=== PATIENT | male | born 1985 | race Caucasian/White ===

== ENCOUNTER 2023-12-05 19:20 | Emergency (ER) | payer BC, SELFPAY ==
[2023-12-05 19:23] VITALS: BP 121/83; PULSE 89; RESP 16; TEMP 37; O2SAT 98; BMI 21.7
--- NOTE | 2023-12-05 19:35 | CRLHL7_ITS ---
For Patients: As a result of the Cures Act, medical imaging exams and procedure reports are released immediately into your electronic medical record. You may view this report before your referring provider. If you have questions, please contact your health care provider. INDICATION: VOMITING AND FOOD IMPACTION. TECHNIQUE: Chest 1 views. COMPARISON: None. FINDINGS: Cardiovascular and mediastinum: Cardiomediastinal silhouette is within normal limits. Lungs and pleural spaces: Lungs are clear. No sign of pleural effusion. No pneumothorax. Bones and soft tissues: No significant findings. IMPRESSION: No acute cardiopulmonary process identified. Dictated by Lauren Worley MD @ 12/05/2023 9:07:20 PM (Electronically Signed)
[2023-12-05] MEDS: HYDROmorphone 0.5 mg/0.5 ml inj IVP (19:53)
[2023-12-05] MEDS: ONDANSETRON 2 MG/ML inj 4 MG IVP (19:55)
[2023-12-05] MEDS: LORazepam 2 MG/ML inj 0.5 MG IVP (19:56)
[2023-12-05] MEDS: 0.9 % SODIUM CHLORIDE 1000 ml 1,000 ML IV (20:04)
[2023-12-05 20:06] LABS: Basophils Absolute Auto 0.04 K/uL (0.00-0.30); Basophils Percent Auto 0.6 % (0.0-3.0); Eosinophils Percent Auto 3.2 % (0.0-7.0); Hematocrit 43.4 % (37.0-53.0); Immature Granulocytes Abs Auto 0.01 K/uL (0.00-0.30); Immature Granulocytes Pct Auto 0.2 %; Lymphocytes Percent Auto 18.5 % (20-44); Mean Corpuscular HGB Conc 35 gm/dL (32-36); Mean Corpuscular Hemoglobin 31 pg (26-34); Mean Corpuscular Volume 89 fL (80-100); Monocytes Percent Auto 7.3 % (0.0-11.0); Neutrophils Absolute Auto 4.35 K/uL (1.7-7.0); Neutrophils Percent Auto 70.2 % (42.0-72.0); Platelet Count* 194 K/uL (140-440); RDW Coefficient of Variation % 11.5 % (11.5-15.5); Red Blood Count 4.86 m/uL (4.30-5.90)
[2023-12-05 20:07] LABS: Slide Review Reflex No
[2023-12-05 20:30] LABS: Chloride* 104 mmol/L (96-114); Potassium* 3.8 mmol/L (3.6-5.1); Sodium* 141 mmol/L (135-149)
[2023-12-05] MEDS: PANTOPRAZOLE SODIUM 40 MG INJ IVP (20:30)
--- NOTE | 2023-12-05 20:31 | ED_ITS ---
HPI - General Adult General Date Seen: 12/05/23 Chief complaint: Abdominal Pain Stated complaint: possible blockage in stomach Time Seen by Provider: 12/05/23 19:21 Source: patient and family Mode of arrival: ambulatory Limitations: no limitations History of Present Illness HPI narrative: Patient is a 38-year-old gentleman who presents here with a foreign body meat bolus stuck in his lower esophagus, approximately 2 hours ago he was eating a corn beef sandwich, and felt it get stuck in his lower part of his chest he has had multiple episodes at least 15 times of vomiting since, he can not keep any fluids down. He went initially to the [facility] where they gave him some pop rocks, he threw these up, they recommended he go to the emergency department at [facility], he went there and found that he had approximately a 3 hour wait and then came to the [facility] ER. No previous history of esophageal foreign body, he has no history of chronic gastritis or esophagitis, or reflux. Denies throwing up any blood, denies a history of fevers chills or sweats or history of malignancy. He is on no chronic medications, has no known allergies. Here with his . The chest pain came on right with eating, this was not that it came on after. No previous history of ER visits, hospitalizations or any surgical endeavors. Nondrinker nonsmoker no user of alcohol. Related Data Previous Rx's ?Medication ?Instructions ?Recorded pantoprazole 40 mg tablet,delayed 40 mg PO DAILY #21 tabs 12/05/23 release (Protonix) Allergies Allergy/AdvReac Type Severity Reaction Status Date / Time acetaminophen [From Tylenol] Allergy Verified 12/05/23 19:26 [facility] Medical History (Updated 12/05/23 @ 21:39 by Kevin Childress MD) Patellofemoral pain syndrome of left knee ?M22.2X2 - Patellofemoral disorders, left knee (ICD-10) Chronic pain of left knee ?M25.562 - Pain in left knee (ICD-10) ?G89.29 - Other chronic pain (ICD-10) Asthma ?J45.909 - Unspecified asthma, uncomplicated (ICD-10) Allergic rhinitis ?J30.9 - Allergic rhinitis, unspecified (ICD-10) Surgical History (Updated 12/05/23 @ 20:39 by Sergei Erickson RN) History of surgical procedure ?Z98.890 - Other specified postprocedural states (ICD-10) Social History Smoking Status: Never smoker Do you use any of these nicotine containing products: None How often do you have a drink containing alcohol: never How often do you have six or more drinks on one occasion: Never AUDIT-C Alcohol total score: 0 Non-prescribed substance use: denies use Exam Narrative: Exam Narrative: On examination he is in moderate distress, he did retch a couple times. Pupils equal round reactive to light there is no scleral icterus redness, is TMs are normal his oropharynx is normal his chest is good air entry bilaterally, with no wheezing crackles heart sounds are normal his abdomen is soft, there is no guarding organomegaly, and bowel sounds are normal he moves all extremities independently and well. Const: Vital Signs, click to edit/add: Vital Signs - 24 hr 12/05/23 19:23 12/05/23 21:50 Temperature 98.6 F 98.6 F Pulse Rate [Pulse Oximeter] 89 84 Respiratory Rate 16 16 Blood Pressure [Ri ght Upper Arm] 121/83 118/78 Pulse Oximetry 98 98 Oxygen Delivery Me thod Room Air Room Air Documenting provider has reviewed patient's vital signs: yes Course Course ED Course: Patient continues to do well, he is able to drink water any crackers, with no problems at all. A feels a little tired from the medications examination reveals no tenderness in his abdomen, he has injury breathing normally. I think at this point with normal labs, normal chest x-ray shows no evidence of air along his mediastinum. Were able to discharge home, I will put him on Protonix for 3 weeks, he has further issues he needs to follow up with GI return here to the emergency room, he should be on clear fluids for the next 3 days, increasing to soft diet after that. He was comfortable with this plan. Vital Signs Vital signs: Initial Vital Signs Temperature 98.6 F 12/05/23 19:23 Temperature Source Temporal Artery Scan 12/05/23 19:23 Pulse Rate 89 12/05/23 19:23 Respiratory Rate 16 12/05/23 19:23 Blood Pressure 121/83 12/05/23 19:23 Blood Pressure Mean 95 12/05/23 19:23 Blood Pressure Position Sitting 12/05/23 19:23 Pulse Oximetry 98 12/05/23 19:23 Oxygen Delivery Method Room Air 12/05/23 19:23 Vital Signs Temperature 98.6 F 12/05/23 19:23 Pulse Rate 89 12/05/23 19:23 Respiratory Rate 16 12/05/23 19:23 Blood Pressure 121/83 12/05/23 19:23 Pulse Oximetry 98 12/05/23 19:23 Oxygen Delivery Method Room Air 12/05/23 19:23 Temperature 98.6 F 12/05/23 21:50 Pulse Rate 84 12/05/23 21:50 Respiratory Rate 16 12/05/23 21:50 Blood Pressure 118/78 12/05/23 21:50 Pulse Oximetry 98 12/05/23 21:50 Oxygen Delivery Method Room Air 12/05/23 21:50 Medications Administered Medications: Discontinued Medications Generic Name Dose Route Start Last Admin Trade Name Freq PRN Reason Stop Dose Admin Hydromorphone HCl 0.5 mg 12/05/23 19:35 12/05/23 19:53 Hydromorphone 0.5 Mg/0.5 Ml Inj IVP 12/05/23 19:36 0.5 mg ONCE ONE Administration Sodium Chloride 1,000 mls @ 1,000 mls/hr 12/05/23 19:45 12/05/23 21:15 0.9 % Sodium Chloride 1000 Ml IV 12/05/23 20:44 Infused .Q1H GRANT Infusion Lorazepam 0.5 mg 12/05/23 19:36 12/05/23 19:56 Lorazepam 2 Mg/Ml Inj IVP 12/05/23 19:37 0.5 mg ONCE ONE Administration Ondansetron HCl 4 mg 12/05/23 19:35 12/05/23 19:55 Ondansetron 2 Mg/Ml Inj IVP 12/05/23 19:36 4 mg ONCE ONE Administration Pantoprazole Sodium 40 mg 12/05/23 20:20 12/05/23 20:30 Pantoprazole Sodium 40 Mg Inj IVP 12/05/23 20:21 40 mg ONCE ONE Administration Simethicone/Sodium Bicarb/Citric Ac 1 each 12/05/23 19:38 12/05/23 20:51 Simethicone/Sod Bicarb/Cit Ac 1 Each Gran.Ef.Pk PO 12/05/23 19:39 Not Given ONCE ONE Medical Decision Making MDM Narrative Medical decision making narrative: I discussed with him, that this is consistent with a food bolus impaction I did consider alter alternative diagnosis such as esophageal perforation, upper GI bleeding, biliary colic, small-bowel obstruction, peptic ulcer disease, pneumothorax, or other possibilities. We will do some labs, IV fluids, along with medication make him feel a bit better such as Dilaudid, and Zofran. After we started an IV gave him medications, he promptly threw up 1 more time throwing up a food bolus, we actually did give him any pop rocks, and says that he thinks the pop rocks from the Urgent Care were still in there. He feels amazingly better is drinking water we will do test with some crackers or and and/or some bread, sees able to get this down. I think we can let him go home with the proton pump inhibitor for a minimum of couple weeks. Medical Records Medical records reviewed: Yes I reviewed the patient's medical records Lab Data Lab results reviewed: Yes I reviewed the patient's lab results Labs: Lab Results 12/05/23 Range/Units 20:00 WBC 6.20 (4.50-11.00) K/uL RBC 4.86 (4.30-5.90) m/uL Hgb 15.0 (13.5-17.5) gm/dL Hct 43.4 (37.0-53.0) % MCV 89 (80-100) fL MCH 31 (26-34) pg MCHC 35 (32-36) gm/dL RDW Coeff of Alexa 11.5 (11.5-15.5) % Plt Count 194 (140-440) K/uL Neut % (Auto) 70.2 (42.0-72.0) % Lymph % (Auto) 18.5 L (20-44) % [place] % (Auto) 7.3 (0.0-11.0) % Eos % (Auto) 3.2 (0.0-7.0) % Baso % (Auto) 0.6 (0.0-3.0) % Neut # (Auto) 4.35 (1.7-7.0) K/uL Lymph # (Auto) 1.10 (0.90-2.90) K/uL [place] # (Auto) 0.50 (0.00-0.90) K/UL Eos # (Auto) 0.20 (0.00-0.50) K/uL Baso # (Auto) 0.04 (0.00-0.30) K/uL Abs Immat Gran (auto) 0.01 (0.00-0.30) K/uL Imm/Tot Granulo (auto) 0.2 % Sodium 141 (135-149) mmol/L Potassium 3.8 (3.6-5.1) mmol/L Chloride 104 (96-114) mmol/L Carbon Dioxide 30 (20-32) mmol/L Anion Gap 7 (7-15) mEq/L BUN 20 (5-24) mg/dL Creatinine 0.8 (0.5-1.5) mg/dL Estimated Creat Clear 128.52 Estimated GFR 116 ml/min Glucose 99 (60-115) mg/dL Calcium 9.5 (8.4-10.6) mg/dL Imaging Data Chest x-ray: Attestation: I have reviewed the pertinent imaging results. My impression: Chest x-ray normal per my view Radiologist's impression: Patient: SHADI HACKETT Facility:?[facility] Patient ID:?[id number] Site Patient ID:?[id number]. Site :?[id number] Study:?XRay-Chest PORTABLE-12/05/2023 7:55:57 PM Ordering Physician:Cl Brown Final Report: INDICATION: VOMITING AND FOOD IMPACTION. TECHNIQUE: Chest 1 views. COMPARISON: None. FINDINGS: Cardiovascular and mediastinum: Cardiomediastinal silhouette is within normal limits. Lungs and pleural spaces: Lungs are clear. No sign of pleural effusion. No pneumothorax. Bones and soft tissues: No significant findings. IMPRESSION: No acute cardiopulmonary process identified. Dictated by Lauren Worley MD @ 12/05/2023 9:07:20 PM (Electronic Signature) Discharge Plan Discharge Clinical Impression: Esophageal obstruction due to food impaction Patient Disposition: Home w/ Parent or Adult Condition: Stable Instructions: Esophageal Foreign Body (ED), Food Impaction (ED) Additional Instructions: Home ,rest, clear fluids times 24 hours, please fill your prescription in use at this will for the next 3 weeks. This will help the esophagus heel, has undoubtedly there is an area there that is sore any irritated. I would also try to avoid for 48 hours if you do use NSAIDs, caffeine, and alcohol. Recommend follow-up with GI if ongoing signs and symptoms, commonly for a first-time issue with this. We do not do anything. But anything that feels like you food getting caught, and the future I recommend that she see GI. And consideration endoscopy. I put the name of a good doctor in here, the does endoscopy. Activity Level: Light activity Discharge Diet: Clear Liquid Prescriptions: New pantoprazole [Protonix] 40 mg tablet,delayed release (DR/EC) 40 mg PO DAILY Qty: 21 0RF Follow Up/Referrals: Provider,Not a Local [Primary Care Provider] - Jermaine Haley MD [Staff Physician] - Stand Alone Forms: [employer] Info Instructions
[2023-12-05 20:33] LABS: Anion Gap 7 mEq/L (7-15); Carbon Dioxide* 30 mmol/L (20-32); Creatinine* 0.8 mg/dL (0.5-1.5); Est. Creatinine Clearance* 128.52; Estimated Glomerular Filt Rate 116 ml/min
[2023-12-05 20:34] LABS: Blood Urea Nitrogen* 20 mg/dL (5-24); Calcium* 9.5 mg/dL (8.4-10.6); Glucose* 99 mg/dL (60-115)
[2023-12-05 21:50] VITALS: BP 118/78; PULSE 84; RESP 16; TEMP 37; O2SAT 98
== END 2023-12-05 21:50 | disposition home or self-care (01) ==
PROVIDERS: Emergency Provider Family Medicine
DX: T18.128A Food in esophagus causing other injury, initial encounter (principal)
CPT/HCPCS: 36415; 71045; 80048; 85025; 96374; 96375; 99284; 99285; C9113; J1170; J2060; J2405; J7030